=== PATIENT | female | born 1950 | race Caucasian/White ===

== ENCOUNTER 2021-03-03 10:39 | Outpatient (CLI) | payer MEDICARE | END 2021-03-03 10:40 | disposition home or self-care (01) | LOC: CSHMRI 10:39 | PROVIDERS: ATTEND Neurological Surgery | DX: M54.16 Radiculopathy, lumbar region (principal); M47.816 Spondylosis without myelopathy or radiculopathy, lumbar region | CPT/HCPCS: 72148 ==

== ENCOUNTER 2021-11-24 10:04 | Outpatient (CLI) | payer MEDICARE | END 2021-11-24 10:05 | disposition home or self-care (01) | LOC: CSHMAMMO 10:04 | PROVIDERS: ATTEND Internal Medicine | DX: Z12.31 Encounter for screening mammogram for malignant neoplasm of breast (principal); Z98.82 Breast implant status | CPT/HCPCS: 77063; 77067 ==

== ENCOUNTER 2023-01-21 08:55 | Outpatient (CLI) | payer MEDICARE | END 2023-01-21 08:56 | disposition home or self-care (01) | LOC: CSHULT 08:55 | PROVIDERS: ATTEND Internal Medicine | DX: D24.2 Benign neoplasm of left breast (principal); M79.622 Pain in left upper arm; N64.4 Mastodynia; Z98.82 Breast implant status | CPT/HCPCS: 77066; G0279 ==